=== PATIENT | female | born 1935 | race Caucasian/White ===

== ENCOUNTER 2016-10-26 10:38 | Inpatient (IN) ==
[2016-10-26] MEDS ORDERED: D50W SYRINGE IV PRN (17:04)
[2016-10-26] MEDS ORDERED: NORCO-5 PO PRN (17:05)
[2016-10-26 18:08] LABS: ALLEN TEST YES; BE 6.9 mmoll (-3.0-3.0); BLOOD TYPE ARTERIAL; DRAW SITE L RADIAL; METHB 0.2 % (0.0-1.5); MODALITY CANNULA; O2(CT) 9.7 mL/dL (15.0-23.0); PCO2(98.6) 48 mmHg (35-45); PO2(98.6) 94 mmHg (60-100); SAMPLE BLOOD; SAO2 97.7 % (95.0-100.0); pH(98.6) 7.43 (7.35-7.45)
[2016-10-26 18:18] LABS: BASO% 0.2 % (0.0-0.8); EOS# 0.06 X1000 (0.0-0.7); EOS% 0.5 % (0.0-10.0); HEMATOCRIT 25.8 % (37.0-47.0); IMM GRAN# 0.03 X1000 (0.0-0.04); IMM GRAN% 0.2 % (0.0-0.5); LYMPH# 1.33 X1000 (1.2-3.4); LYMPH% 10.3 % (20.5-51.1); MANUAL DIFF NEEDED? NO; MCH 25.2 PG (27-31); MCHC 27.1 g/dL (33-37); MCV 92.8 FL (81-99); MONO# 0.93 X1000 (0.11-0.59); MONO% 7.2 % (1.7-9.3); MPV 9.5 FL (7.4-10.4); NEUT% 81.6 % (42.2-75.2); PLT 304 X1000 (130-400); RBC 2.78 XMIL (4.2-5.4); RETIC% 2.04 % (0.8-2.1); RETIC-HE 22.1 PG (28.2-36.6)
[2016-10-26 18:32] LABS: INR 1.03; PROTIME 10.8 Seconds (9.2-11.7); PTT 27.3 Seconds (22.0-36.0)
[2016-10-26 18:39] LABS: AGAP 10; ALBUMIN 2.5 g/dL (3.5-5.0); ALKALINE PHOSPHATASE 98 U/L (32-104); BUN 41 mg/dL (8-22); CALCIUM 9.5 mg/dL (8.8-10.2); CHLORIDE 104 mmol/L (98-107); COSMO 302; GOT 5 U/L (10-30); GPT < 5 U/L (10-36); POTASSIUM 4.5 mmol/L (3.5-5.1); SODIUM 142 mmol/L (136-145); TCO2 28 mmol/L (25-35); TOTAL BILIRUBIN 0.12 mg/dL (0.20-1.00)
--- NOTE | 2016-10-26 19:03 | Diag Imaging Result Doc PS360 ---
ABDOMEN/PELVIS W/O CONTRAST - 10/26/2016 INDICATION: acute renal failure TECHNIQUE: A CT dose reduction protocol was used. COMPARISON: 11/10/2015 FINDINGS: There are numerous large stones at the right UPJ and right renal collecting system. These are largely stable from prior. There is grossly stable rather severe hydronephrosis on the right. There is some increased renal atrophy of the right renal cortex when compared with the prior exam, probably due to the chronic noncorrected hydronephrosis. There is expansion of the right psoas musculature with some internal fluid density and gas bubbles. This also affects the right iliac is muscle as well. There are only some very small loculations of fluid, there is no significant drainable fluid collection. There is worsening in irregular soft tissue density at the lower pole of the right kidney. This may represent a neoplasm. There is a left nephroureteral stent in good position. There is a large left staghorn calculus that has worsened since the prior exam. This measures up to 4.5 x 2 cm. There is severe rectal stool impaction with a large 9 cm stool ball. There is probably stercoral proctitis as well. No bowel obstruction or free air. Urinary bladder and uterus are grossly normal. IMPRESSION: 1. Enlargement with internal fluid densities and gas involving the right iliopsoas musculature. This is compatible with myositis and possibly a small intramuscular abscess. This does not appear to be drainable. 2. Worsening right renal atrophy. 3. Worsening irregular soft tissue density at the lower pole of the right kidney. Neoplasm is not excluded. 4. New left nephroureteral stent, and worsening of the left staghorn calculus. 5. Massive rectal stool impaction. Stercoral proctitis. Electronically signed by Ari Otoole 10/26/2016 7:01 PM
[2016-10-26] MEDS ORDERED: DULCOLAX PR ONE (19:38)
[2016-10-26] MEDS: DUONEB (A & A) INH SCH ×2 (19:42→23:28)
[2016-10-26] MEDS ORDERED: ROCEPHIN 1 GM/NS 1 GM/50 ML IVPB IV SCH (20:00)
[2016-10-26 20:32] LABS: URINE SOURCE CATH
[2016-10-26 20:38] LABS: BILIRUBIN URINE NEGATIVE (NEGATIVE); BLOOD URINE SMALL (NEGATIVE); COLOR ORANGE; GLUCOSE URINE TRACE mg/dL (NEGATIVE); LEUKOCYTES URINE LARGE (NEGATIVE); NITRITE URINE NEGATIVE (NEGATIVE); PROTEIN URINE 600 mg/dL (NEGATIVE); SP GRAVITY URINE 1.012; TURBIDITY URINE TURBID (CLEAR); UROBILINOGEN URINE NORMAL (NORMAL)
[2016-10-26 20:45] LABS: UR EPITHELIAL CELLS >10 /HPF (<10); URINE BACTERIA 4+ /HPF; URINE CULTURE NEEDED? YES; URINE MICRO REVIEW NEEDED? YES; URINE RBC 20-40 /HPF (<10); URINE WBC TNTC /HPF (<10)
--- NOTE | 2016-10-26 20:56 | Diag Imaging Result Doc PS360 ---
KNEE 3 VIEWS RIGHT - 10/26/2016 INDICATION: knee pain TECHNIQUE: COMPARISON: None FINDINGS: Bones are very osteopenic. No definite fractures. There is mild to moderate osteoarthritis of the knee. There is also mild to moderate peripheral vascular disease. IMPRESSION: Nonspecific findings. Electronically signed by Ari Otoole 10/26/2016 8:54 PM
--- NOTE | 2016-10-26 20:59 | Diag Imaging Result Doc PS360 ---
CHEST-2 VIEWS - 10/26/2016 INDICATION: acute renal failure TECHNIQUE: COMPARISON: 11/11/2015 FINDINGS: Lung volumes are extremely low. No definite infiltrates. Heart size is top normal. There is left hemidiaphragm elevation. IMPRESSION: Extremely low lung volumes. No significant change from prior. Electronically signed by Ari Otoole 10/26/2016 8:57 PM
[2016-10-26] MEDS: NS 1,000 ML IV SCH (21:01)
[2016-10-26 21:06] LABS: URINE CASTS NONE SEEN; URINE CRYSTALS TRIPLE PHOS PRESENT; URINE SMALL ROUND CELLS NONE SEEN
--- NOTE | 2016-10-26 21:59 | HISTORY AND PHYSICAL ---
CHIEF COMPLAINT: Abnormal laboratory. HISTORY OF PRESENT ILLNESS: A 81-year-old female patient, resident of [facility], not doing well lately. Patient was complaining of pain difficult to pinpoint. At times, she was yelling with the pain, which was going on since she recently had her stent changed. The patient is not able to give a good history. The patient does have dementia, multiple medical problems. She recently had blood work done. Her hemoglobin was 6.9. Her renal function was deteriorating. Patient has only one functioning kidney. I was concerned and I decided to admit the patient for further care because of deteriorating renal function, drop in hemoglobin and hematocrit and her pain. Patient does have mild cough. No expectoration or hemoptysis. Her oral intake was fair. No dysphagia or odynophagia. No diarrhea, blood, or mucus in the stool. The patient found to have significant constipation. No typical chest pain. No nausea or vomiting. Oral intake variable. No further history available at this time. ALLERGIES: Milk containing products. PAST MEDICAL HISTORY: Significant for hypertension, hyperparathyroidism, bilateral kidney stones. Patient has stent placement. Right nonfunctioning kidney due to staghorn kidney stone. Hyperthyroidism. Thyroid goiter. COPD. Chronic respiratory failure. Sleep apnea. Diabetes mellitus. Osteoarthritis. Gastritis and reflux disease. Recent weight loss. Anemia of chronic disease. Dementia. PERSONAL HISTORY: , but . Nonsmoker. Denied alcohol or substance abuse. REVIEW OF SYSTEMS: As per HPI. Otherwise, unobtainable. FAMILY HISTORY: Noncontributory. PHYSICAL EXAMINATION: GENERAL: Elderly white female patient in mild distress. VITAL SIGNS: On admission, blood pressure 119/81, pulse 69, respirations 20, temperature 100.3 degrees. SKIN: Senile turgor. HEENT: Head atraumatic, normocephalic. Patient does have conjunctival congestion. Pupils equally reacting to light. Fundus cannot be penetrated. Good oral hygiene. No tonsillopharyngeal congestion or exudate. Ears and nose benign. NECK: Supple. No JVD, thyromegaly or lymphadenopathy. CHEST: Bilateral good air entry present. Bibasilar crepitation. Occasional wheezing. CARDIOVASCULAR: S1 and S2 heard. No gallop, no JVD. The patient does have a thyroid goiter, difficult to comment about carotid bruit. LUNGS: Bibasilar crepitations. Occasional wheezing. CVS: S1 and S2 heard. No gallop or thrill. ABDOMEN: Soft, globular. Bowel sounds present. No organomegaly or mass. EXTREMITIES: No cyanosis, clubbing. Minimal swelling. No acute DVT. The patient movement of right knee painful and limited. No acute synovitis. SURGERY NURSE: Alert, awake. Able to move all 4 limbs. Uncooperative for detailed exam. LABORATORY DATA: Did reveal leukocytosis with left shift. Hemoglobin was 7. Hematocrit 25.8. PT/INR 1.03. Blood gas, pH 7.43, PCO2 48. PO2 94, this was done on 3 L via nasal cannula. BUN 41, creatinine 2.4. Potassium 4.5. Blood glucose 251. Ferritin was 310. Urinalysis did reveal large leukocytes, too numerous to count WBC, 20-40 RBC, and 4+ bacteria. IMAGING: The patient has CT scan of the abdomen and pelvis done, which did reveal bilateral kidney stones. Worsening right renal atrophy. Irregular soft tissue density at the lower pole of the right kidney. Neoplasm is not excluded. New left nephroureteral stent and worsening of the left staghorn calculus. Massive rectal stool impaction. The patient's chest x-ray revealed extremely low lung volumes. I also did x-ray on her right knee which revealed nonspecific findings. OVERALL IMPRESSION: Acute on chronic kidney disease. Urinary tract infection. Anemia of chronic disease. Bilateral kidney stones. Diabetes mellitus. Hyperthyroidism. Hyperparathyroidism. Chronic obstructive pulmonary disease . Chronic respiratory failure. Dementia. The patient is an acutely ill. I am going to hydrate the patient. Blood transfusion. IV antibiotics. Close observation. Pain management. I checked uric acid level which was minimally elevated. I will treat her constipation symptomatically. Overall plan discussed with the patient. Prognosis fair to guarded. No family member available at this time to discuss. Further plans depending on hospital course. cc: Alfredo Crowley MD
[2016-10-26] MEDS: ARICEPT PO SCH (22:15)
[2016-10-26] MEDS: BACITRACIN BOTH EYES SCH (22:15)
[2016-10-26] MEDS: POLYMYXIN B BOTH EYES SCH (22:15)
[2016-10-26] MEDS: NEOMYCIN BOTH EYES SCH (22:15)
[2016-10-26] MEDS: MILK OF MAGNESIA PO SCH (22:15)
[2016-10-26] MEDS: VITAMIN D PO SCH (22:15)
[2016-10-26] MEDS: LASIX PO SCH (22:15)
[2016-10-26] MEDS: COREG PO SCH (22:15)
[2016-10-26] MEDS: HUMALOG SUBQ SCH (23:05)
[2016-10-27] MEDS: DUONEB (A & A) INH SCH ×6 (03:13→23:10)
[2016-10-27 06:33] LABS: MANUAL DIFF NEEDED? NO
[2016-10-27] MEDS: HUMALOG SUBQ SCH ×4 (06:33→21:10)
[2016-10-27 06:49] LABS: BASO% 0.3 % (0.0-0.8); EOS# 0.05 X1000 (0.0-0.7); EOS% 0.4 % (0.0-10.0); HEMATOCRIT 29.3 % (37.0-47.0); HEMOGLOBIN 8.5 g/dL (12.0-16.0); IMM GRAN# 0.02 X1000 (0.0-0.04); IMM GRAN% 0.2 % (0.0-0.5); LYMPH# 2.08 X1000 (1.2-3.4); LYMPH% 17.9 % (20.5-51.1); MCH 26.5 PG (27-31); MCV 91.3 FL (81-99); MONO# 0.96 X1000 (0.11-0.59); MONO% 8.3 % (1.7-9.3); MPV 9.6 FL (7.4-10.4); NEUT% 72.9 % (42.2-75.2); PLT 283 X1000 (130-400); RBC 3.21 XMIL (4.2-5.4)
[2016-10-27] MEDS ORDERED: LINZESS PO ONE (07:11)
[2016-10-27 07:13] LABS: AGAP 9; ALBUMIN 2.1 g/dL (3.5-5.0); ALKALINE PHOSPHATASE 77 U/L (32-104); BUN 33 mg/dL (8-22); CALCIUM 9.4 mg/dL (8.8-10.2); CHLORIDE 112 mmol/L (98-107); COSMO 304; GOT 8 U/L (10-30); GPT < 5 U/L (10-36); POTASSIUM 4.4 mmol/L (3.5-5.1); SODIUM 148 mmol/L (136-145); TCO2 27 mmol/L (25-35); TOTAL BILIRUBIN 0.28 mg/dL (0.20-1.00); TOTAL PROTEIN 6.8 g/dL (6.3-8.3)
[2016-10-27 07:27] LABS: FREE T4 1.18 ng/dL (0.93-1.70)
--- NOTE | 2016-10-27 07:38 | PROGRESS NOTE ---
DATE: 10/27/2016 SUBJECTIVE: Ms. Ray is doing better. More alert and awake. Answering questions fair. The patient seems to be in pain. Yesterday I felt she had more pain in the knee but today when I tried to move her to do a rectal exam I felt like she had more pain in the right hip. I had to do the rectal exam in the right lateral position because she had significant pain in the right hip. The patient received 2 units of packed RBC. No high-grade fever or chills. No typical chest pain. No nausea or vomiting. Her history part was limited. OBJECTIVE: Vital signs: Reviewed. Neck: Supple. No JVD. Lungs: Bibasilar crepitations. Heart: S1 and S2 heard. Abdomen: Soft, globular. Bowel sounds present. Rectal: Patient does have soft stool. Extremities: No cyanosis, clubbing. No acute DVT. Movement of the right hip and knee painful. MONORAIL CAR OPERATOR: Alert, awake. Able to move all 4 limbs. DIAGNOSTIC STUDIES: CT scan of the abdomen and pelvis, results reviewed. I am going to get x-ray of the right hip with the pelvis. CONSIDERATIONS: 1. Anemia, most likely of chronic disease. Post transfusion hemoglobin 8.5, hematocrit 29.3. Her ferritin level was 310, reticulocyte count was. 2.04. Her an anemia is most likely of chronic disease. 2. Chronic respiratory failure. 3. Patient has a urinary tract infection. 4. She recently had stent placement. 5. Chronic kidney disease. 6. Bilateral kidney stone. 7. Hyperparathyroidism. 8. Hyperthyroidism. PLAN: CBC done this morning reviewed. Electrolytes, results are pending. We will continue current treatment. Close observation. Family is not available to discuss the plan. The patient does have dementia. I changed antibiotics to Invanz. Will give her Linzess. Clinically patient does not have any evidence of obstruction. Her stool was soft. Will continue gentle hydration. cc: Alfredo Crowley MD
--- NOTE | 2016-10-27 08:45 | Diag Imaging Result Doc PS360 ---
XRAY HIP W/PELVIS BILAT 3-4VWS - 10/27/2016 INDICATION: rt. hip pain TECHNIQUE: Four views COMPARISON: CT abdomen pelvis from yesterday FINDINGS: There is severe rectal stool impaction. There is a right hip prosthesis. There is a left nephroureteral stent. No fractures. IMPRESSION: Severe rectal stool impaction. No fractures. This plain radiograph does not disclose the myositis and intramuscular abscess reported from the CT from yesterday. Electronically signed by Ari Otoole 10/27/2016 8:42 AM
[2016-10-27] MEDS: TAPAZOLE PO SCH (09:45)
[2016-10-27] MEDS: NAMENDA XR PO SCH (09:45)
[2016-10-27] MEDS: CARDIZEM CD PO SCH (09:45)
[2016-10-27] MEDS: RITALIN PO SCH (09:45)
[2016-10-27] MEDS: LASIX PO SCH ×2 (09:45→21:00)
[2016-10-27] MEDS: CELEXA PO SCH (09:45)
[2016-10-27] MEDS: VITAMIN D PO SCH ×2 (09:46→21:00)
[2016-10-27] MEDS: COREG PO SCH ×2 (09:46→21:00)
[2016-10-27] MEDS: INVANZ 0.5 GM in NS 50 ML IV SCH (09:46)
[2016-10-27] MEDS: PEPCID IV SCH ×4 (11:45→23:37)
[2016-10-27] MEDS: POLYMYXIN B BOTH EYES SCH ×2 (17:58→21:00)
[2016-10-27] MEDS: NEOMYCIN BOTH EYES SCH ×2 (17:58→21:00)
[2016-10-27] MEDS: BACITRACIN BOTH EYES SCH ×2 (17:58→21:00)
[2016-10-27] MEDS: NS 1,000 ML IV SCH (18:00)
[2016-10-27] MEDS: MILK OF MAGNESIA PO SCH (21:00)
[2016-10-27] MEDS: ARICEPT PO SCH (21:00)
[2016-10-27] MEDS: SODIUM CHLORIDE 0.9% INJ SCH (23:37)
[2016-10-27] MEDS: LOVENOX SUBQ SCH ×2 (23:37)
[2016-10-28] MEDS: NS 1,000 ML IV SCH ×2 (03:14→16:58)
[2016-10-28] MEDS: DUONEB (A & A) INH SCH ×6 (03:39→23:05)
[2016-10-28] MEDS: HUMALOG SUBQ SCH ×4 (06:17→23:16)
[2016-10-28] MEDS ORDERED: CALMOSEPTINE OINTMENT TOP PRN (06:34)
[2016-10-28 08:12] LABS: BASO% 0.4 % (0.0-0.8); EOS# 0.06 X1000 (0.0-0.7); EOS% 0.7 % (0.0-10.0); HEMATOCRIT 29.2 % (37.0-47.0); HEMOGLOBIN 8.3 g/dL (12.0-16.0); LYMPH# 1.69 X1000 (1.2-3.4); LYMPH% 20.4 % (20.5-51.1); MANUAL DIFF NEEDED? YES; MCH 26.3 PG (27-31); MCHC 28.4 g/dL (33-37); MCV 92.4 FL (81-99); MONO# 0.64 X1000 (0.11-0.59); MONO% 7.7 % (1.7-9.3); NEUT% 70.8 % (42.2-75.2); PLT 269 X1000 (130-400); RBC 3.16 XMIL (4.2-5.4)
--- NOTE | 2016-10-28 08:18 | PROGRESS NOTE ---
DATE: 10/28/2016 SUBJECTIVE: Ms. Ray is doing better. She had a small bowel movement yesterday, according to nurse's aide. No nausea or vomiting. History part was limited. She denied any chest pain. No high-grade fever or chills. OBJECTIVE: Vital signs: The patient had low-grade fever of 99.3. Neck: Supple, no JVD. Lungs: Bibasilar crepitation. Heart: S1 and S2 heard. Abdomen: Soft, globular, bowel sounds present, no point tenderness. Extremities: No cyanosis, clubbing, no acute DVT. LEAD CASTER: Alert, awake, able to move all 4 limbs, but uncooperative for detailed exam. I did an x-ray of the hip and pelvis. It shows severe rectal stool impaction. When I did a rectal exam, it was soft stool, though exam was limited. I gave her Linzess yesterday with small result. I am going to get an abdominal x-ray today to make sure no obstruction, will get GI evaluation with Dr. Kimbrough. Her other problem includes acute on chronic kidney disease. Laboratory data done yesterday shows some improvement. I am going to recheck blood work today. ASSESSMENT/PLAN: The patient does have multiple complex medical issues includin. Hyperparathyroidism. 2. Hypercalcemia. 3. Hyperthyroidism. 4. Dementia. 5. Osteoarthritis. 6. Diabetes mellitus. 7. Anemia, most likely of chronic disease. The patient's TSH was 0.08, free T4 was 1.18. The patient is on Tapazole. Will recheck blood work today. The patient's family member is here. I am going to talk to them, discuss prognosis. Urine culture is still pending. cc: Alfredo Crowley MD
[2016-10-28 08:26] LABS: HYPOCHROM 1+; LYMPHS 13 % (21-51); MONO 6 % (1-9)
[2016-10-28 08:31] LABS: AGAP 8; ALBUMIN 2.3 g/dL (3.5-5.0); ALKALINE PHOSPHATASE 68 U/L (32-104); BUN 32 mg/dL (8-22); CALCIUM 9.5 mg/dL (8.8-10.2); CHLORIDE 110 mmol/L (98-107); COSMO 299; GOT 5 U/L (10-30); GPT < 5 U/L (10-36); POTASSIUM 4.4 mmol/L (3.5-5.1); SODIUM 146 mmol/L (136-145); TCO2 28 mmol/L (25-35); TOTAL BILIRUBIN 0.24 mg/dL (0.20-1.00); TOTAL PROTEIN 6.5 g/dL (6.3-8.3)
[2016-10-28] MEDS: RITALIN PO SCH (09:00)
[2016-10-28] MEDS: NEOMYCIN BOTH EYES SCH ×2 (09:00→23:17)
[2016-10-28] MEDS: POLYMYXIN B BOTH EYES SCH ×2 (09:00→23:17)
[2016-10-28] MEDS: BACITRACIN BOTH EYES SCH ×2 (09:00→23:17)
[2016-10-28] MEDS: TAPAZOLE PO SCH (09:01)
[2016-10-28] MEDS: COREG PO SCH ×2 (09:01→23:16)
[2016-10-28] MEDS: CARDIZEM CD PO SCH (09:01)
[2016-10-28] MEDS: NAMENDA XR PO SCH (09:01)
[2016-10-28] MEDS: VITAMIN D PO SCH ×2 (09:01→23:16)
[2016-10-28] MEDS: LASIX PO SCH ×2 (09:01→23:16)
[2016-10-28] MEDS: INVANZ 0.5 GM in NS 50 ML IV SCH (09:01)
[2016-10-28] MEDS: CELEXA PO SCH (09:01)
--- NOTE | 2016-10-28 09:01 | Diag Imaging Result Doc PS360 ---
EXAM: ABDOMEN FLAT/UPRIGHT HISTORY: pain TECHNIQUE: Flat and upright, two views COMMENT: There is a ureteral stent on the left with what appears to be a staghorn calculus. There are also apparent multiple calculi present in the right collecting system particularly over the lower pole. There is a large amount of stool in the rectum. There is calcification in the abdominal aorta which is apparently tortuous and possibly dilated. No evidence organomegaly or mass is present and no evidence of bowel loop dilatation is otherwise present. IMPRESSION: 1. Fecal impaction. 2. Bilateral nephrolithiasis with left ureteral stent. 3. Atherosclerosis. Electronically signed by Brian De Leon 10/28/2016 8:59 AM
[2016-10-28] MEDS ORDERED: LACTULOSE PO ONE (12:03)
[2016-10-28] MEDS: PEPCID IV SCH ×2 (12:10→23:33)
--- NOTE | 2016-10-28 15:13 | CONSULTATION ---
DATE OF CONSULTATION: 10/28/2016 HISTORY AND REASON FOR CONSULTATION: Evaluation of this patient with fecal impaction. HISTORY OF PRESENT ILLNESS: This is a 81-year-old lady, who was transferred from the [facility] on 10/26/2016 because her health was deteriorating with the patient complaining of lot of pain especially on the right hip area. The patient was said to be having chronic constipation and there is no mention when the last bowel movement was for her from the group home. The patient had a CT scan of the abdomen and pelvis done which revealed a large amount of stool in the rectum and compatible with a fecal impaction. The patient was given Linzess. The nursing staff tells me that the patient actually has multiple loose stools coming out several times a day since she was in the hospital, without her knowing about it. She has significant renal failure secondary to multiple renal calculi which are mainly staghorn calculi. The patient has only her left kidney functional. She has a stent placed on the left side. The patient is unable to give a history herself. All that she does is answers to her name and complains of pain on the right side. The patient has no blood in stool or black stools as noted from the previous history in the chart. PAST MEDICAL HISTORY: 1. Hypertension. 2. Diabetes mellitus. 3. Hyperparathyroidism. 4. Bilateral kidney stones. 5. Renal failure. 6. Hyperparathyroidism. 7. Goiter. 8. Chronic obstructive pulmonary disease with chronic respiratory failure. 9. Sleep apnea. 10. Gastroesophageal reflux disease. 11. Osteoarthritis. 12. Anemia of chronic disease. 13. Advanced dementia. PERSONAL AND SOCIAL HISTORY: There is no history of alcohol or tobacco abuse in the family. She is from her . FAMILY HISTORY: Unobtainable. REVIEW OF SYSTEMS: There had been significant constipation. No mention of any abdominal pain. The patient complains mainly of right hip pain. There is no significant fever or chills. No nausea or vomiting. She is able to eat and drink but the appetite has been poor. PHYSICAL EXAMINATION: The patient is drowsy and she seems to be uncomfortable when moving her body. For rectal examination we turned her on her left side and that was quite painful. She points to the right side of her abdomen and hip.Vital Signs: The temperature is 99.3 degrees, pulse rate is 62 per minute, respiratory rate is 16, blood pressure is 131/45. General: She is looking very pale. Skin: Otherwise warm, and dry. Mucous membranes are moist. Neck: Supple. Lungs: Bilateral air entry present. There are a few bibasilar crepitations present. No wheezing. Cardiac: Both heart sounds are heard. Rhythm is regular. I could not hear any murmur. The patient has a goiter. Abdomen: Soft. There is no significant tenderness present. No masses felt. Extremities: Slight pedal edema present with a painful right side. On moving the right hip patient complains of pain. Rectal: Large amount of stool present with reduced anal sphincter tone. LAB DATA: At the time of entry the patient's hemoglobin was 7, hematocrit 25.8. After 2 units of blood transfusion today, the hemoglobin came up to 8.3, hematocrit 29.2. The platelet count is 269,000. ProTime is 10.8, INR is 1.3. Sodium 146, potassium 4.4, chloride is 110, BUN is 32, creatinine 1.7 which is improved from 41 and 2.4. The blood sugar was 251. Currently it is 125. The liver functions are normal. TSH is 0.08. Urine shows WBCs too numerous to count, RBCs 20-40. IMPRESSION: 1. Fecal impaction. 2. Chronic constipation. RECOMMENDATION: I will give her soap suds enema once now and start her on lactulose 30 mL twice a day. We will watch her for couple of days to see how her bowel movements are to decide about further management. cc: Alfredo Crowley MD MTDD
[2016-10-28] MEDS: MILK OF MAGNESIA PO SCH (23:16)
[2016-10-28] MEDS: ARICEPT PO SCH (23:16)
[2016-10-28] MEDS: LACTULOSE PO SCH (23:16)
[2016-10-28] MEDS: SODIUM CHLORIDE 0.9% INJ SCH (23:33)
[2016-10-28] MEDS: LOVENOX SUBQ SCH (23:33)
[2016-10-29] MEDS: DUONEB (A & A) INH SCH ×6 (03:20→23:06)
[2016-10-29] MEDS: NS 1,000 ML IV SCH ×2 (05:56→22:10)
[2016-10-29] MEDS ORDERED: FLEET MINERAL OIL ENEMA PR ONE (07:43)
[2016-10-29] MEDS ORDERED: GOLYTELY PO ONE (08:00)
--- NOTE | 2016-10-29 08:30 | PROGRESS NOTE ---
DATE: 10/29/2016 HISTORY AND REASON FOR ADMISSION: Patient is admitted because of adrenal insufficiency, kidney stones and severe constipation. She has dementia. I saw her yesterday and she was ordered a soapsuds enema, as well as lactulose 30 mL twice a day. However, the enema did not work although a small amount of stool came out. On rectal examination yesterday she was impacted, but the impaction would not be disimpacted digitally because of the nature of the stool. This morning I did another rectal examination. The patient had lots of stool stuck in her rectum. It seems to be quite high impaction. The stool is quite soft and it is impossible for her to push out, and digitally it is difficult to bring out. OBJECTIVE: Vital signs: Today the temperature is 98.3 degrees, pulse rate is 66, blood pressure is 163/60. General: The patient seems to be quite comfortable. She is very drowsy. Only responds to her name. She does not communicate. The patient seems to have been complaining of pain in the right hip area. Lungs: General examination is unchanged and there were a few crackles in the bases. Abdomen: Seems soft, protuberant. There is no tenderness present except in the right lower quadrant. Rectal examination: Revealed a large amount of soft stool in the rectal vault and high up. I would try to try to remove it digitally, but that was difficult because of the nature of the stool. RECOMMENDATIONS: 1. GoLYTELY will be given at least a minimum 2 L by mouth. 2. Oil retention enema as soon as possible. If that fails, the nurses would let me know and I will order a tap water enema to clean her colon out. cc: Alfredo Crowley MD
[2016-10-29] MEDS: HUMALOG SUBQ SCH ×4 (09:19→23:12)
[2016-10-29] MEDS: INVANZ 0.5 GM in NS 50 ML IV SCH (09:34)
[2016-10-29] MEDS: TAPAZOLE PO SCH (09:36)
[2016-10-29] MEDS: LASIX PO SCH ×2 (09:37→23:10)
[2016-10-29] MEDS: CELEXA PO SCH (09:37)
[2016-10-29] MEDS: NAMENDA XR PO SCH (09:37)
[2016-10-29] MEDS: VITAMIN D PO SCH ×2 (09:37→23:10)
[2016-10-29] MEDS: RITALIN PO SCH (09:37)
[2016-10-29] MEDS: CARDIZEM CD PO SCH (09:37)
[2016-10-29] MEDS: COREG PO SCH ×2 (09:37→23:10)
[2016-10-29] MEDS: LACTULOSE PO SCH ×2 (09:43→23:10)
[2016-10-29] MEDS: BACITRACIN BOTH EYES SCH ×2 (11:42→23:11)
[2016-10-29] MEDS: POLYMYXIN B BOTH EYES SCH ×2 (11:42→23:11)
[2016-10-29] MEDS: NEOMYCIN BOTH EYES SCH ×2 (11:42→23:11)
--- NOTE | 2016-10-29 12:54 | PROGRESS NOTE ---
DATE: 10/29/2016 SUBJECTIVE: The patient is noncommunicative, apparently she has dementia. She will be alert and move around and apparently the manager nursing home was able to get her to drink some of her Colyte but she would not talk to me at all. She just rubbed her face and her head and did not respond. OBJECTIVE: Vital Signs: Blood pressure is 168/76, respirations 14, pulse 59 and regular, and temperature 97.7 degrees Fahrenheit. HEENT: Essentially normal. I could not get a look in her throat, ears, or eyes at this point. Respiratory: Her lungs are clear to auscultation and percussion without rhonchi, rales, or wheezes. Cardiovascular: Heart has a regular rate and rhythm without murmurs, gallops, clicks, or rubs. Gastrointestinal: The abdomen is soft with active bowel sounds. No organomegaly or tenderness. She has been very constipated. Neurological: Difficult to test. She just would not cooperate much but she is moving all 4 extremities and apparently has been sitting up at times and drinking Colyte. LABORATORY DATA: She has a white count of 8,280. Hemoglobin is up to 8.3. Creatinine is down to 1.7. BUN is 32. Sodium is 146 and potassium 4.4. Urine culture is growing a gram-negative teofilo but apparently is requiring more incubation time. ASSESSMENT: 1. Urinary tract infection. 2. Acute on chronic kidney disease. 3. Anemia of chronic disease. 4. Bilateral kidney stones. 5. Adult onset diabetes mellitus. 6. Hyperthyroidism. 7. Hyperparathyroidism. 8. Chronic obstructive pulmonary disease. 9. Chronic respiratory failure. 10.Dementia. The patient has been given IV fluids and a blood transfusion. The patient has also been very constipated and is being treated for that. PLAN: Continue Colyte and IV antibiotics. cc: MD Alfredo Burr Jr, MD
[2016-10-29] MEDS: PEPCID IV SCH ×2 (14:23→23:30)
[2016-10-29] MEDS: ARICEPT PO SCH (23:10)
[2016-10-29] MEDS: MILK OF MAGNESIA PO SCH (23:10)
[2016-10-29] MEDS: LOVENOX SUBQ SCH (23:25)
[2016-10-29] MEDS: SODIUM CHLORIDE 0.9% INJ SCH (23:30)
[2016-10-30] MEDS: DUONEB (A & A) INH SCH ×6 (03:40→23:06)
[2016-10-30] MEDS: HUMALOG SUBQ SCH ×4 (07:38→21:30)
--- NOTE | 2016-10-30 08:38 | PROGRESS NOTE ---
DATE: 10/30/2016 SUBJECTIVE: This patient is admitted because of multiple medical problems. In addition to that, she had fecal impaction. Yesterday, she had an oil retention enema with good results. The nurse informed me that there was a large bowel movement after the enema. She also received 1 gallon of GoLYTELY and that resulted in liquid brown stools throughout yesterday. The patient is quite comfortable now. OBJECTIVE: Vital Signs: Temperature is 97.6 degrees, pulse is 58 per minute, respiratory rate is 16, blood pressure is 144/56. General: She seems to be quite drowsy and sleeping. Respiratory: The respiratory therapist told me that she had some crackles in the bases. Her breathing is the same as before. Abdomen: Soft, much less distended, nontender. Bowel sounds are heard. IMPRESSION: 1. Fecal impaction, resolved. 2. Chronic severe constipation. RECOMMENDATION: Continue with the lactulose 30 mL b.i.d. to ensure the patient has a good bowel movement. In the detention, she should be getting impaction checks frequently so that she will not get into this kind of a situation. GI will stand by. If there is any further need of assistance, please let me know. cc: Alfredo Crowley MD
[2016-10-30] MEDS: TAPAZOLE PO SCH (08:52)
[2016-10-30] MEDS: RITALIN PO SCH (08:52)
[2016-10-30] MEDS: NAMENDA XR PO SCH (08:52)
[2016-10-30] MEDS: CARDIZEM CD PO SCH (08:52)
[2016-10-30] MEDS: VITAMIN D PO SCH ×2 (08:52→21:28)
[2016-10-30] MEDS: LASIX PO SCH ×2 (08:52→21:28)
[2016-10-30] MEDS: COREG PO SCH ×2 (08:53→21:28)
[2016-10-30] MEDS: INVANZ 0.5 GM in NS 50 ML IV SCH (08:53)
[2016-10-30] MEDS: CELEXA PO SCH (08:53)
[2016-10-30] MEDS: LACTULOSE PO SCH ×2 (08:54→21:28)
[2016-10-30] MEDS: POLYMYXIN B BOTH EYES SCH ×2 (08:55→21:29)
[2016-10-30] MEDS: NEOMYCIN BOTH EYES SCH ×2 (08:55→21:29)
[2016-10-30] MEDS: BACITRACIN BOTH EYES SCH ×2 (08:55→21:29)
--- NOTE | 2016-10-30 11:27 | PROGRESS NOTE ---
DATE: 10/30/2016 SUBJECTIVE: Patient has dementia and really does not communicate well. OBJECTIVE: Vital Signs: Blood pressure 155/63, respirations 16, pulse 56 and regular, temperature 97.8 degrees Fahrenheit. HEENT: Essentially within normal limits. Neck: Supple. Lungs: Clear to auscultation and percussion without rhonchi, rales, or wheezes. Heart: Regular rate and rhythm without murmurs, gallops, or friction rubs. Abdomen: Soft. Active bowel sounds. No organomegaly or tenderness. Neurological Examination: Patient has dementia. Seems to be intact except for her mentation. Laboratory Data: Her urine culture grew out Proteus and E. coli. We will change the antibiotics to Zosyn which covers both. ASSESSMENT: 1. Urinary tract infection. 2. Acute on chronic kidney disease. 3. Anemia of chronic disease. 4. Bilateral kidney stones. 5. Adult-onset diabetes mellitus. 6. Hyperthyroidism. 7. Hyperparathyroidism. 8. Chronic obstructive pulmonary disease. 9. Constipation with impaction, now resolved. 10. Dementia. PLAN: We will get a catheterized urine specimen in the morning after changing antibiotics today. cc: MD Alfredo Burr Jr, MD
[2016-10-30] MEDS: ZOSYN 3.375 GM/NS 3.375 GM/50 ML IVPB IV SCH ×4 (12:00→22:43)
[2016-10-30] MEDS: PEPCID IV SCH ×2 (13:55→21:29)
[2016-10-30] MEDS: SODIUM CHLORIDE 0.9% INJ SCH ×2 (13:55→21:29)
[2016-10-30] MEDS: NS 1,000 ML IV SCH ×2 (13:56→21:25)
[2016-10-30] MEDS: MILK OF MAGNESIA PO SCH (21:28)
[2016-10-30] MEDS: ARICEPT PO SCH (21:28)
[2016-10-31] MEDS: PEPCID IV SCH (00:21)
[2016-10-31] MEDS: SODIUM CHLORIDE 0.9% INJ SCH (00:21)
[2016-10-31] MEDS: LOVENOX SUBQ SCH (00:21)
[2016-10-31] MEDS: DUONEB (A & A) INH SCH ×3 (02:52→11:16)
[2016-10-31] MEDS: NS 1,000 ML IV SCH (03:55)
[2016-10-31] MEDS: ZOSYN 3.375 GM/NS 3.375 GM/50 ML IVPB IV SCH ×2 (04:50→11:44)
[2016-10-31] MEDS: HUMALOG SUBQ SCH ×2 (06:13→11:43)
[2016-10-31 07:39] VITALS: BP 155/58
[2016-10-31 08:16] LABS: URINE MICRO REVIEW NEEDED? NO; URINE SOURCE CATH
[2016-10-31 08:56] LABS: URINE RBC <10 /HPF (<10); URINE WBC 20-40 /HPF (<10)
[2016-10-31 08:57] LABS: COLOR YELLOW; UR EPITHELIAL CELLS <10 /HPF (<10); URINE BACTERIA 1+ /HPF
[2016-10-31 08:58] LABS: BILIRUBIN URINE NEGATIVE (NEGATIVE); BLOOD URINE MODERATE (NEGATIVE); GLUCOSE URINE NEGATIVE (NEGATIVE); PROTEIN URINE 30 mg/dL (NEGATIVE); TURBIDITY URINE CLEAR (CLEAR)
[2016-10-31 08:59] LABS: LEUKOCYTES URINE MODERATE (NEGATIVE); NITRITE URINE NEGATIVE (NEGATIVE); UROBILINOGEN URINE NORMAL (NORMAL)
[2016-10-31 09:40] LABS: MANUAL DIFF NEEDED? NO
[2016-10-31 09:44] LABS: BASO% 0.3 % (0.0-0.8); HEMATOCRIT 30.2 % (37.0-47.0); HEMOGLOBIN 8.8 g/dL (12.0-16.0); LYMPH# 1.93 X1000 (1.2-3.4); LYMPH% 19.4 % (20.5-51.1); MCH 26.6 PG (27-31); MCHC 29.1 g/dL (33-37); MCV 91.2 FL (81-99); MONO# 0.61 X1000 (0.11-0.59); MONO% 6.1 % (1.7-9.3); MPV 9.7 FL (7.4-10.4); NEUT% 73.2 % (42.2-75.2); PLT 240 X1000 (130-400); RBC 3.31 XMIL (4.2-5.4)
[2016-10-31] MEDS: LACTULOSE PO SCH (10:29)
[2016-10-31] MEDS: NAMENDA XR PO SCH (10:29)
[2016-10-31] MEDS: RITALIN PO SCH (10:29)
[2016-10-31] MEDS: LASIX PO SCH (10:29)
[2016-10-31] MEDS: VITAMIN D PO SCH (10:29)
[2016-10-31] MEDS: TAPAZOLE PO SCH (10:30)
[2016-10-31] MEDS: CELEXA PO SCH (10:30)
[2016-10-31] MEDS: CARDIZEM CD PO SCH (10:30)
[2016-10-31] MEDS: COREG PO SCH (10:30)
[2016-10-31] MEDS: POLYMYXIN B BOTH EYES SCH (10:31)
[2016-10-31] MEDS: BACITRACIN BOTH EYES SCH (10:31)
[2016-10-31] MEDS: NEOMYCIN BOTH EYES SCH (10:31)
[2016-10-31 10:32] LABS: AGAP 9; ALBUMIN 2.3 g/dL (3.5-5.0); ALKALINE PHOSPHATASE 67 U/L (32-104); BUN 16 mg/dL (8-22); CALCIUM 9.2 mg/dL (8.8-10.2); CHLORIDE 109 mmol/L (98-107); COSMO 291; GOT 7 U/L (10-30); GPT < 5 U/L (10-36); MAGNESIUM 2.3 mg/dL (1.5-2.7); POTASSIUM 3.7 mmol/L (3.5-5.1); SODIUM 145 mmol/L (136-145); TCO2 27 mmol/L (25-35); TOTAL BILIRUBIN 0.28 mg/dL (0.20-1.00); TOTAL PROTEIN 6.3 g/dL (6.3-8.3)
--- NOTE | 2016-11-01 07:36 | DISCHARGE SUMMARY ---
ADMISSION DATE: 10/26/2016 DISCHARGE DATE: 10/31/2016 FINAL DISCHARGE DIAGNOSES: 1. Urinary tract infection. 2. [id number] kidney disease. 3. Symptomatic anemia of chronic disease. 4. Chronic respiratory failure. 5. Chronic obstructive pulmonary disease. 6. Dementia. 7. Bilateral kidney stone. 8. Hyperthyroidism. 9. Diabetes mellitus. 10. Osteoarthritis. 11. Gastritis. 12. Reflux disease. HISTORY OF PRESENT ILLNESS: Ms. Ray is a 81-year-old female patient, resident of [facility], recently had a stent changed in her ureter. Patient had bilateral kidney stones; right-sided, it was completely obstructed and nonfunctioning kidney. The patient does have multiple medical conditions. The family decided not to have significant intervention other than conservative approach. The patient's hemoglobin and hematocrit were dropping. The patient was in significant pain. We sent her to the ER for evaluation. Because of her overall presentation and deterioration in her renal function, and the patient having only one functioning kidney, I decided to admit the patient for further care. The patient was treated with IV fluids, IV antibiotics, symptomatic treatment. The patient found to have significant constipation. Initially, she had some pain in the right knee. X-ray of the right knee was not impressive. Then, she had pain in the right hip and pelvis. X-ray of the hip and pelvis shows severe rectal stool impaction, no fracture; may be arthritis. Because of significant constipation, GI consult obtained with Dr. Kimbrough. Patient was treated conservatively. The patient had a good bowel movement. Her obstruction was relieved. Patient is clinically doing much better. Her urine culture grew Proteus mirabilis and Escherichia coli which was sensitive to cefazolin, and I am going to treat her with Rocephin. Overall, the patient is doing better. I am planning to discharge her back to rehab today after reviewing her labs, if they are satisfactory. DISCHARGE PHYSICAL EXAMINATION: Vital Signs: Reviewed. Lungs: Bibasilar crepitation. Heart: S1 and S2 heard. Abdomen: Soft, globular. Bowel sounds present. Extremities: No cyanosis, clubbing. Diffuse atrophy of both lower limbs. [employer]: Alert, awake, able to move all 4 limbs. Uncooperative for detailed exam. LABORATORY DATA: Ordered for today; result is pending. Last hemoglobin 8.3, hematocrit 29.2, WBC count 8.28, platelet count 269,000. This was done on 10/28/2016. Blood gas done on 10/26/2016: pH 7.43, pCO2 of 48, PO2 was 94. This was done on 3 L via nasal cannula. Last BUN was 32, creatinine 1.7 which improved. One order for today is pending. Admission BUN was 41, creatinine 2.4. TSH 0.08 and free T4 1.18. Urinalysis did reveal too numerous to count WBC, 20-40 RBC. Urine culture grew Proteus mirabilis and Escherichia coli. Blood culture was no growth. CT scan of the abdomen and pelvis without contrast did reveal abnormal kidney with kidney stone, worsening right renal atrophy, worsening irregular soft tissue density at the right lower pole. New left nephroureteral stent. Massive rectal stool impaction. Overall discharge condition satisfactory. After reviewing labs, if clinical condition permits, we will plan discharging patient to rehab today. Discharge order and medication as per separate sheet. cc: Alfredo Crowley MD
== END 2016-10-31 13:18 ==
LOC: DIRADM 10:38 → 3N 16:00
PROVIDERS: ADMIT Internal Medicine; ATTEND Internal Medicine